=== PATIENT | male | born 1975 | race Caucasian/White ===

== ENCOUNTER 2019-01-13 17:36 | Emergency (ER) | payer SELFPAY ==
[2019-01-13 17:37] VITALS: BP 101/63; PULSE 85; RESP 16; TEMP 37.3; O2SAT 96; BMI 21.5
[2019-01-13 17:55] LABS: Bedside Glucose > 500 mg/dL (70-110)
--- NOTE | 2019-01-13 18:03 | ED.VISSUMM ---
- ER Visit Summary Date of Service: 01/13/19 Chief Complaint: Left great toe pain History of Present Illness: The patient is a 43 M who has left great toe pain. Is been ongoing for 3 days. He noticed redness on his foot. He has a wound on the bottom which she has been removing the top of. No significant drainage. His temperatures been up to 100 ?F at home. He is a diabetic and states he takes insulin that he receives [id number]. 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 Denies any ingrown toenail Physical Examination: Vital signs reviewed. Left foot reveals tenderness of the left great toe. He does have cellulitic changes. There is a wound on the bottom portion of his foot. There is no bleeding or drainage coming from that area. There is no ingrown toenail. I looked between all toes and there are no wounds or sores in these places. Test Results: White blood cell count 15.4, sodium 123, chloride 86, glucose 672, creatinine 1.49 Emergency Department Course and Treatment: Due to the fact he is a diabetic and does not have a PCP I checked his blood sugar and it read high. His BMP shows a sodium of 123 and a glucose of 672. His white count is 15.4. The patient does not want to stay in the hospital. He refuses admission. I will treat him as an outpatient with Bactrim and Keflex. Tylenol for fever. I will give him 1 dose of insulin here before he leaves. I did stress good foot care as he is a diabetic. I will give him a PCP to follow-up with. Treatment Plan: [] Disposition: Discharge Impression: Left foot cellulitis Hyperglycemia, history of diabetes, type II Hyponatremia This note was generated with [employer] software. It may contain incorrect words, spelling, and punctuation that were not noted in review of the chart prior to signing ED Disposition - Plan for ED Patient: Referrals: Care Physician,No Primary [Primary Care Provider] -
[2019-01-13 18:10] LABS: Absolute Lymphocyte Count 0.92 X10^3/ul (0.83-4.51); Absolute Neutrophil Count 12.8 X10^3/uL (2.0-7.7); Basophil# 0.02 X10^3/uL; Basophil% 0.1 % (0-1); Eosinophil# 0.01 X10^3/uL; Eosinophils% 0.1 % (0-5); Hematocrit 36.9 % (40-54); Hemoglobin 12.8 g/dl (13.0-16.5); Lymphocyte # 0.92 X10^3/ul (4.0); Mean Corp Hgb Conc 34.7 g/gl (32-36); Mean Corpuscular Hgb 29.8 pg (27.0-32.0); Mean Platelet Vol. 10.2 fl (6.2-12.0); Monocyte# 1.64 X10^3/uL; Monocyte% 10.7 % (0-10); Neutrophil # 12.78 X10^3/uL (2.7-7.7); Platelet Count 351 K/mm3 (150-450); RBC Distribution Width CV 12.3 % (11.6-14.6); RBC Distribution Width SD 38.5 fl (35.1-43.9); Red Blood Count 4.29 M/mm3 (4.6-6.2); White Blood Count 15.4 K/mm3 (4.4-11.0)
[2019-01-13 18:14] LABS: Differential Indicated SCAN CRITERIA MET; POSITIVE COUNT NO; POSITIVE DIFFERENTIAL YES; POSITIVE MORPHOLOGY NO
[2019-01-13 18:28] LABS: Anion Gap 15 (5-15); BUN 26 mg/dL (7-18); BUN/Creat Ratio 17.4 RATIO (10-20); Calcium,Total 8.8 mg/dL (8.5-10.1); Chloride 86 mmol/L (98-107); Creatinine, Serum 1.49 mg/dL (0.70-1.30); EST Glomerular Filtration Rate 54 mL/min (>60); Est Glom Filt Rate - Afr Amer 65 mL/min (>60); Estimated Creatinine Clearance 60.25 ml/min; Glucose 672 mg/dL (74-106); Potassium 4.5 mmol/L (3.5-5.1); Sodium Level 123 mmol/L (136-145)
[2019-01-13 18:33] LABS: Differential Comment SCANNED
--- NOTE | 2019-01-13 18:39 | ED.DEP ---
ED Disposition - Plan for ED Patient: Disposition: Home or Assisted Living Instructions: ED Infec Skin Cellulitis Prescriptions: Cephalexin [Keflex] 500 mg PO Q6 #40 cap Smz/Tmp Ds [Bactrim Ds] 1 tab PO BID #20 tab Referrals: Care Physician,No Primary [Primary Care Provider] - Aisha George MD [STAFF PHYSICIAN] -
[2019-01-13] MEDS: Insulin NPH Human 100 UNITS/ML PEN 30 UNITS SC (19:27)
[2019-01-13] MEDS: Acetaminophen 500 MG Tablet 1000 MG PO (19:27)
[2019-01-13 19:55] VITALS: BP 112/70; PULSE 83; RESP 17; O2SAT 94
== END 2019-01-13 19:55 | disposition home or self-care (01) ==
PROVIDERS: Emergency Provider Emergency Medicine
DX: L03.116 Cellulitis of left lower limb (principal); E11.65 Type 2 diabetes mellitus with hyperglycemia; E87.1 Hypo-osmolality and hyponatremia; Z79.4 Long term (current) use of insulin
CPT/HCPCS: 80048; 82962; 85025; 99283; A4216

== ENCOUNTER → 2019-06-08 | Outpatient (CLI) | payer SELFPAY ==
--- NOTE | 2019-06-08 07:32 | MRI_ITS ---
STUDY: MRI CERVICAL SPINE WITHOUT CONTRAST REASON FOR EXAM: Male, 44 years old. The patient presents with a history of neck pain with pain extending down the legs with burning the chin to the chest. TECHNIQUE: Standardized fat and water weighted pulse sequences were obtained in the sagittal and axial planes. COMPARISON: No relevant priors. FINDINGS: Craniovertebral Junction Foramen Magnum: Normal. Brainstem Cervical Cord Junction: Normal. Atlanto-Occipital Articulation: Normal. Atlantoaxial Articulation (Anterior): Normal. Odontoid Process: Normal. Vertebrae, Alignment and Perivertebral Spaces: Vertebrae: There is hyperintense T1 and T2 signal involving the the right C6 pedicle, transverse process, apophyseal facet and right lamina with a speckled pattern suggesting a hemangioma. There is a hypointense linear defect at the junction of the right lamina (axial T2 series 7, image 61), consistent with a nondisplaced fracture. CT imaging would be of benefit for further assessment of the osseous structures. There is a T1 vertebral body hemangioma (sagittal T1 series 3, image 9; sagittal T2 series 2, image 7). Curvature: Normal. Alignment: Normal. Prevertebral Space: Normal. Prevertebral Muscles: Normal. Disc Space Levels N.B., Normal level statement indicates: Normal endplates; disc height, signal and morphology; facet joints; central canal, lateral recesses, and intervertebral neuroformina. C2-3: There is disc desiccation with preservation of the disc height. There is no disc displacement. Normal central canal and intervertebral neural foramina. C3-4: There is disc desiccation with preservation of the disc height. There is no disc displacement. Normal central canal and intervertebral neural foramina. C4-5: Normal. C5-6: There is disc desiccation with preservation of the disc height. There is no disc displacement. Normal central canal and intervertebral neural foramina. C6-7: Hyperintense T1 and T2 signal of the right C6 pedicle, transverse process, apophyseal facet and right lamina with a hypointense linear defect at the junction of the right lamina, consistent with a nondisplaced fracture. CT imaging recommended for further assessment. There is disc desiccation with preservation of the disc height. There is no disc displacement. Normal central canal and intervertebral neural foramina. C7-T1: Normal. Cervical / Thoracic (Visualized) Cord Cervical Cord: Normal. Soft Tissue Neck Masses: None. Lymphadenopathy: None. MRI/Spine Cervical (Routine) IMPRESSION: 1. Hyperintense T1 and T2 signal involving the right C6 pedicle, transverse process, apophyseal facet and right lamina most compatible with a hemangioma, with a hypointense linear defect consistent with a nondisplaced fracture. CT imaging is recommended for further confirmation. 2. Mild multilevel degenerative disc disease but without disc displacement. 3. T1 vertebral body hemangioma. Electronically Signed: Ranjit Rutherford DO at 9:33 EST Tel , Service support ,
== END | disposition home or self-care (01) ==
DX: M99.03 Segmental and somatic dysfunction of lumbar region (principal)
CPT/HCPCS: 72141